=== PATIENT | male | born 1970 | race Caucasian/White ===

== ENCOUNTER 2018-02-22 16:14 | Inpatient (IN) | payer MEDICARE, OTHER ==
[2018-02-22 16:45] LABS: ADD MAN DIFF? NO
[2018-02-22 16:49] LABS: BASOPHIL # 0.1 10^3/ul (0.0-0.1); BASOPHILS % 0.8 % (0.0-2.0); EOSINOPHILS # 0.1 10^3/ul (0.0-0.5); EOSINOPHILS % 0.9 % (0.0-7.0); HEMATOCRIT 21.4 % (42.0-52.0); HEMOGLOBIN 7.3 g/dl (14.0-18.0); LYMPHOCYTES # 1.6 10^3/ul (0.8-2.9); LYMPHOCYTES % 23.8 % (15.0-51.0); MEAN CORPUSCULAR HEMOGLOBIN 32.2 pg (29.0-33.0); MEAN CORPUSCULAR HGB CONC 34.1 g/dl (32.0-37.0); MEAN CORPUSCULAR VOLUME 94.3 fl (82.0-101.0); MEAN PLATELET VOLUME 10.7 fl (7.4-10.4); MONOCYTE # 0.6 10^3/ul (0.3-0.9); MONOCYTES % 9.7 % (0.0-11.0); NEUTROPHIL # 4.2 10^3/ul (1.6-7.5); NEUTROPHILS % 63.7 % (39.0-77.0); PLATELET COUNT 331 10^3/UL (140-415); RED BLOOD COUNT 2.27 10^6/ul (4.70-6.10); RED CELL DISTRIBUTION WIDTH 14.3 % (11.5-14.5)
[2018-02-22 16:49] LABS: WHITE BLOOD COUNT 6.6 10^3/ul (4.8-10.8)
[2018-02-22 17:06] LABS: ALANINE AMINOTRANSFERASE 209 IU/L (13-69); ALBUMIN 3.8 g/dl (3.3-4.9); ALBUMIN/GLOBULIN RATIO 1.31; ALKALINE PHOSPHATASE 230 IU/L (42-121); ANION GAP 19 (8-16); ASPARTATE AMINO TRANSFERASE 118 IU/L (15-46); BILIRUBIN,INDIRECT 0.1 mg/dl (0-1.1); BILIRUBIN,TOTAL 0.1 mg/dl (0.2-1.3); BLOOD UREA NITROGEN 56 mg/dl (7-20); CALCIUM 8.6 mg/dl (8.4-10.2); CARBON DIOXIDE 15 mmol/L (21-31); CHLORIDE 97 mmol/L (97-110); CREATININE 7.59 mg/dl (0.61-1.24); SODIUM 125 mmol/L (135-144); TOTAL PROTEIN 6.7 g/dl (6.1-8.1)
[2018-02-22 17:15] LABS: GLUCOSE 408 mg/dl (70-220); POTASSIUM 5.8 mmol/L (3.5-5.1)
[2018-02-22] MEDS: SODIUM CHLORIDE 23.4% 77 MEQ in DEXTROSE 10% 1,000 ML IV (17:31)
[2018-02-22] MEDS ORDERED: DEXTROSE 50% 50 ML SYRINGE IV (18:00)
[2018-02-22] MEDS ORDERED: POTASSIUM CHLORIDE 30 MEQ in SOD CHLORIDE 0.9% 1,000 ML IV (18:43)
[2018-02-22] MEDS ORDERED: SODIUM CHLORIDE 23.4% 77 MEQ, POTASSIUM CHLORIDE 40 MEQ in DEXTROSE 10% 1,000 ML IV (18:43)
[2018-02-22] MEDS ORDERED: POTASSIUM CHLORIDE 40 MEQ in SOD CHLORIDE 0.9% 1,000 ML IV (18:43)
[2018-02-22] MEDS ORDERED: SODIUM CHLORIDE 23.4% 77 MEQ, POTASSIUM CHLORIDE 30 MEQ in DEXTROSE 10% 1,000 ML IV (18:43)
[2018-02-22 19:18] LABS: MODE ROOM AIR; MetHgb Venous 0.3 %; Sample Type Blood venous; Site VENOUS LINE; Venous COHb 0.2 %; Venous Fraction OxyHgb 78.8 %; Venous Oxygen Sat 79.2 mmHG (55.0-75.0); Venous Total Hemglobin 8.1 g/dl
[2018-02-22] MEDS: SOD CHLORIDE 0.9% 580 ML IV (19:45)
[2018-02-22] MEDS: SOD CHLORIDE 0.9% 1,000 ML IV (19:45)
[2018-02-22] MEDS: INSULIN REGULAR, HUMAN 100 UNIT in SOD CHLORIDE 0.9% 100 ML IV (19:47)
[2018-02-22 20:12] LABS: ANION GAP 11 (8-16); BLOOD UREA NITROGEN 40 mg/dl (7-20); CARBON DIOXIDE 12 mmol/L (21-31); CHLORIDE 113 mmol/L (97-110); GLUCOSE 352 mg/dl (70-220); MAGNESIUM 1.7 mg/dl (1.7-2.5); POTASSIUM 4.2 mmol/L (3.5-5.1); SODIUM 132 mmol/L (135-144)
[2018-02-22] MEDS ORDERED: ALBUTEROL/IPRATROPIUM (NEB) 3 ML AMP NEB (20:30)
[2018-02-22] MEDS ORDERED: ONDANSETRON 4 MG INJ IV (20:30)
[2018-02-22 22:09] LABS: MODE ROOM AIR; MetHgb Venous 0.5 %; Sample Type Blood venous; Site VENOUS LINE; Venous COHb 0.4 %; Venous Oxygen Sat 91.8 mmHG (55.0-75.0); Venous Total Hemglobin 5.7 g/dl
[2018-02-22 22:18] LABS: ANION GAP 17 (8-16); BLOOD UREA NITROGEN 56 mg/dl (7-20); CALCIUM 8.5 mg/dl (8.4-10.2); CARBON DIOXIDE 17 mmol/L (21-31); CHLORIDE 98 mmol/L (97-110); CREATININE 7.88 mg/dl (0.61-1.24); GLUCOSE 399 mg/dl (70-220); MAGNESIUM 2.3 mg/dl (1.7-2.5); PHOSPHORUS 5.6 mg/dl (2.5-4.9); POTASSIUM 5.3 mmol/L (3.5-5.1); SODIUM 127 mmol/L (135-144)
[2018-02-23] MEDS: HEPARIN 5,000 UNIT/0.5 ML VIAL SC ×3 (01:37→21:16)
[2018-02-23] MEDS: hydrALAzine 20 MG INJ IV ×3 (02:08→19:29)
[2018-02-23 02:31] LABS: ANION GAP 14 (8-16); BLOOD UREA NITROGEN 56 mg/dl (7-20); CALCIUM 8.2 mg/dl (8.4-10.2); CARBON DIOXIDE 18 mmol/L (21-31); CHLORIDE 100 mmol/L (97-110); CREATININE 7.52 mg/dl (0.61-1.24); GLUCOSE 302 mg/dl (70-220); MAGNESIUM 2.4 mg/dl (1.7-2.5); PHOSPHORUS 5.2 mg/dl (2.5-4.9); POTASSIUM 4.4 mmol/L (3.5-5.1); SODIUM 128 mmol/L (135-144)
[2018-02-23 03:24] LABS: MODE ROOM AIR; MetHgb Venous 0.4 %; Sample Type Blood venous; Site VENOUS LINE; Venous COHb 0.1 %; Venous Fraction OxyHgb 92.1 %; Venous Oxygen Sat 92.6 mmHG (55.0-75.0); Venous Total Hemglobin 6.7 g/dl
[2018-02-23] MEDS: SOD CHLORIDE 0.9% 1,000 ML IV ×3 (03:32→21:14)
[2018-02-23] MEDS: DEXTROSE 50% 50 ML SYRINGE IV (05:06)
[2018-02-23 05:43] LABS: ADD MAN DIFF? NO
[2018-02-23 05:59] LABS: BASOPHIL # 0.1 10^3/ul (0.0-0.1); BASOPHILS % 1.3 % (0.0-2.0); EOSINOPHILS # 0.2 10^3/ul (0.0-0.5); EOSINOPHILS % 2.6 % (0.0-7.0); HEMATOCRIT 21.3 % (42.0-52.0); HEMOGLOBIN 7.3 g/dl (14.0-18.0); LYMPHOCYTES # 1.5 10^3/ul (0.8-2.9); LYMPHOCYTES % 23.9 % (15.0-51.0); MEAN CORPUSCULAR HEMOGLOBIN 31.5 pg (29.0-33.0); MEAN CORPUSCULAR HGB CONC 34.3 g/dl (32.0-37.0); MEAN CORPUSCULAR VOLUME 91.8 fl (82.0-101.0); MEAN PLATELET VOLUME 10.6 fl (7.4-10.4); MONOCYTE # 0.6 10^3/ul (0.3-0.9); MONOCYTES % 9.8 % (0.0-11.0); NEUTROPHIL # 3.8 10^3/ul (1.6-7.5); NEUTROPHILS % 61.9 % (39.0-77.0); PLATELET COUNT 370 10^3/UL (140-415); RED BLOOD COUNT 2.32 10^6/ul (4.70-6.10); RED CELL DISTRIBUTION WIDTH 14.3 % (11.5-14.5)
[2018-02-23 05:59] LABS: WHITE BLOOD COUNT 6.1 10^3/ul (4.8-10.8)
[2018-02-23 06:32] LABS: ALANINE AMINOTRANSFERASE 170 IU/L (13-69); ALBUMIN 3.4 g/dl (3.3-4.9); ALBUMIN/GLOBULIN RATIO 1.13; ALKALINE PHOSPHATASE 210 IU/L (42-121); ANION GAP 17 (8-16); ASPARTATE AMINO TRANSFERASE 73 IU/L (15-46); BILIRUBIN,INDIRECT 0.2 mg/dl (0-1.1); BILIRUBIN,TOTAL 0.2 mg/dl (0.2-1.3); BLOOD UREA NITROGEN 58 mg/dl (7-20); CALCIUM 8.5 mg/dl (8.4-10.2); CARBON DIOXIDE 17 mmol/L (21-31); CHLORIDE 101 mmol/L (97-110); CREATININE 8.16 mg/dl (0.61-1.24); GLUCOSE 128 mg/dl (70-220); POTASSIUM 4.9 mmol/L (3.5-5.1); SODIUM 130 mmol/L (135-144); TOTAL PROTEIN 6.4 g/dl (6.1-8.1)
[2018-02-23 06:37] LABS: PHOSPHORUS 5.7 mg/dl (2.5-4.9)
[2018-02-23 06:37] LABS: MAGNESIUM 2.4 mg/dl (1.7-2.5)
[2018-02-23] MEDS: INSULIN GLARGINE [LANTus] (100 UNITS/ML) SYG SC ×2 (08:08→16:43)
[2018-02-23] MEDS: INSULIN HUMAN REGULAR 100 UNIT in SOD CHLORIDE 0.9% 99 ML IV (09:09)
[2018-02-23 09:24] LABS: MODE NASAL CANNULA; MetHgb Venous 0.1 %; Sample Type Blood venous; Site VENOUS LINE; Venous COHb 0.3 %; Venous Oxygen Sat 96.4 mmHG (55.0-75.0)
[2018-02-23] MEDS: LABETALOL HCL 20MG INJ IV (10:16)
[2018-02-23 11:02] LABS: HEPATITIS B SURFACE ANTIGEN NEGATIVE (NEGATIVE)
[2018-02-23] MEDS: HEPARIN 1000 UNITS/ML 10 ML INJ CATHETER (12:01)
[2018-02-23 13:32] LABS: MODE NASAL CANNULA; MetHgb Venous 0 %; Sample Type Blood venous; Site VENOUS LINE; Venous COHb 0.3 %; Venous Fraction OxyHgb 88.7 %; Venous Total Hemglobin 9.6 g/dl
[2018-02-23 15:09] LABS: HEPATITIS B SURFACE ANTIBODY POSITIVE (NEGATIVE)
[2018-02-23 15:29] LABS: ANION GAP 15 (8-16); BLOOD UREA NITROGEN 22 mg/dl (7-20); CALCIUM 8.6 mg/dl (8.4-10.2); CARBON DIOXIDE 23 mmol/L (21-31); CHLORIDE 99 mmol/L (97-110); CREATININE 4.18 mg/dl (0.61-1.24); GLUCOSE 304 mg/dl (70-220); POTASSIUM 4.2 mmol/L (3.5-5.1); SODIUM 133 mmol/L (135-144)
[2018-02-23] MEDS ORDERED: DEXTROSE 50% 50 ML SYRINGE IV (16:30)
[2018-02-23] MEDS ORDERED: GLUCOSE GEL 15 GRAM TUBE PO ×2 (16:30)
[2018-02-23] MEDS ORDERED: GLUCAGON 1 MG INJ IM (16:30)
[2018-02-23] MEDS ORDERED: GLUCOSE GEL 15 GRAM TUBE BUCCAL (16:30)
[2018-02-23] MEDS: SODIUM CHLORIDE 23.4% 77 MEQ in DEXTROSE 10% 1,000 ML IV (17:31)
[2018-02-23] MEDS ORDERED: INSULIN ASPART [NOVOLOG] 3 ML PEN SC ×2 (18:00)
[2018-02-23] MEDS ORDERED: hydrALAzine 20 MG INJ IV (18:00)
[2018-02-23 18:17] LABS: ANION GAP 13 (8-16); BLOOD UREA NITROGEN 25 mg/dl (7-20); CALCIUM 8.5 mg/dl (8.4-10.2); CARBON DIOXIDE 24 mmol/L (21-31); CHLORIDE 100 mmol/L (97-110); CREATININE 4.29 mg/dl (0.61-1.24); GLUCOSE 171 mg/dl (70-220); MAGNESIUM 2.1 mg/dl (1.7-2.5); PHOSPHORUS 4.5 mg/dl (2.5-4.9); POTASSIUM 4.2 mmol/L (3.5-5.1); SODIUM 133 mmol/L (135-144)
[2018-02-23] MEDS: NIFEdipine (XL) 60 MG TAB PO (18:55)
[2018-02-23] MEDS: FLUOXETINE 20 MG CAP PO (18:55)
[2018-02-23] MEDS: INSULIN ASPART [NOVOLOG] 3 ML PEN SC ×4 (19:00→21:43)
[2018-02-23] MEDS: SOD FERRIC GLUC COMPLX 125 MG in SOD CHLORIDE 0.9% 100 ML IVPB (19:24)
[2018-02-23] MEDS: FOLIC ACID 1 MG TAB PO (20:24)
[2018-02-23] MEDS: EPOETIN 4000 UNITS/1 ML INJ (ESRD) SC (20:25)
[2018-02-23] MEDS: traZODone 50 MG TAB PO (21:00)
[2018-02-23] MEDS: ATORVASTATIN 20 MG TAB PO (21:14)
[2018-02-23 21:58] LABS: ANION GAP 14 (8-16); BLOOD UREA NITROGEN 25 mg/dl (7-20); CALCIUM 8.4 mg/dl (8.4-10.2); CARBON DIOXIDE 25 mmol/L (21-31); CHLORIDE 101 mmol/L (97-110); CREATININE 4.78 mg/dl (0.61-1.24); GLUCOSE 118 mg/dl (70-220); MAGNESIUM 2.2 mg/dl (1.7-2.5); PHOSPHORUS 4.7 mg/dl (2.5-4.9); POTASSIUM 4.4 mmol/L (3.5-5.1); SODIUM 136 mmol/L (135-144)
[2018-02-24] MEDS: INSULIN ASPART [NOVOLOG] 3 ML PEN SC ×9 (08:00→20:15)
[2018-02-24 08:41] LABS: IRON 80 ug/dl (35-150)
[2018-02-24 08:51] LABS: % IRON SATURATION 30 % SAT (22-52); TOTAL IRON BINDING CAPACITY 265 ug/dl (241-421)
[2018-02-24] MEDS: NIFEdipine (XL) 60 MG TAB PO ×2 (08:52→19:18)
[2018-02-24] MEDS: FOLIC ACID 1 MG TAB PO (09:02)
[2018-02-24] MEDS: FLUOXETINE 20 MG CAP PO (09:03)
[2018-02-24] MEDS: INSULIN GLARGINE [LANTus] (100 UNITS/ML) SYG SC (09:04)
[2018-02-24] MEDS: HEPARIN 5,000 UNIT/0.5 ML VIAL SC ×2 (09:05→20:33)
[2018-02-24] MEDS: COLLAGENASE 5 GM (UD JAR) TOP (12:08)
[2018-02-24] MEDS: SOD FERRIC GLUC COMPLX 125 MG in SOD CHLORIDE 0.9% 100 ML IVPB (17:27)
[2018-02-24] MEDS: SODIUM CHLORIDE 23.4% 77 MEQ in DEXTROSE 10% 1,000 ML IV (18:33)
[2018-02-24] MEDS: ATORVASTATIN 20 MG TAB PO (20:17)
[2018-02-24] MEDS: traZODone 50 MG TAB PO (20:19)
[2018-02-24] MEDS: hydrALAzine 20 MG INJ IV (23:45)
[2018-02-25 05:42] LABS: ADD MAN DIFF? NO
[2018-02-25 05:57] LABS: WHITE BLOOD COUNT 5.3 10^3/ul (4.8-10.8)
[2018-02-25 05:57] LABS: ABNORMAL IP MESSAGE 1; BASOPHIL # 0.1 10^3/ul (0.0-0.1); BASOPHILS % 0.9 % (0.0-2.0); EOSINOPHILS # 0.1 10^3/ul (0.0-0.5); EOSINOPHILS % 2.1 % (0.0-7.0); HEMATOCRIT 20.9 % (42.0-52.0); LYMPHOCYTES # 1.8 10^3/ul (0.8-2.9); LYMPHOCYTES % 33.4 % (15.0-51.0); MEAN CORPUSCULAR HEMOGLOBIN 32.2 pg (29.0-33.0); MEAN CORPUSCULAR HGB CONC 32.1 g/dl (32.0-37.0); MEAN CORPUSCULAR VOLUME 100.5 fl (82.0-101.0); MEAN PLATELET VOLUME 10.6 fl (7.4-10.4); MONOCYTE # 0.9 10^3/ul (0.3-0.9); MONOCYTES % 17.6 % (0.0-11.0); NEUTROPHIL # 2.4 10^3/ul (1.6-7.5); NEUTROPHILS % 45.1 % (39.0-77.0); NUCLEATED RED BLOOD CELLS% 0.6 /100WBC (0.0-0.0); PLATELET COUNT 335 10^3/UL (140-415); POSITIVE DIFF @See below; RED BLOOD COUNT 2.08 10^6/ul (4.70-6.10); RED CELL DISTRIBUTION WIDTH 16.8 % (11.5-14.5)
[2018-02-25 06:11] LABS: HEMOGLOBIN 6.7 g/dl (14.0-18.0)
[2018-02-25 06:35] LABS: ALANINE AMINOTRANSFERASE 120 IU/L (13-69); ALBUMIN 3.4 g/dl (3.3-4.9); ALBUMIN/GLOBULIN RATIO 1.21; ALKALINE PHOSPHATASE 182 IU/L (42-121); ANION GAP 16 (8-16); ASPARTATE AMINO TRANSFERASE 55 IU/L (15-46); BILIRUBIN,INDIRECT 0.1 mg/dl (0-1.1); BILIRUBIN,TOTAL 0.1 mg/dl (0.2-1.3); BLOOD UREA NITROGEN 32 mg/dl (7-20); CALCIUM 8.3 mg/dl (8.4-10.2); CARBON DIOXIDE 19 mmol/L (21-31); CHLORIDE 106 mmol/L (97-110); GLUCOSE 263 mg/dl (70-220); SODIUM 134 mmol/L (135-144); TOTAL PROTEIN 6.2 g/dl (6.1-8.1)
[2018-02-25 06:44] LABS: POTASSIUM 6.5 mmol/L (3.5-5.1)
[2018-02-25] MEDS: COLLAGENASE 5 GM (UD JAR) TOP (09:00)
[2018-02-25] MEDS: INSULIN ASPART [NOVOLOG] 3 ML PEN SC ×8 (10:12→21:00)
[2018-02-25 10:47] LABS: HAAIG REFLEX REFLEX FILED
[2018-02-25 10:50] LABS: RETICULOCYTE RBC 2.07
[2018-02-25 10:50] LABS: RETICULOCYTE COUNT # 0.105 X10^6 (0.020-0.110); RETICULOCYTE COUNT % 5.1 % (0.5-1.5)
[2018-02-25 12:05] LABS: IMMEDIATE SPIN CROSSMATCH 1 4
[2018-02-25] MEDS: INSULIN GLARGINE [LANTus] (100 UNITS/ML) SYG SC (12:15)
[2018-02-25 12:34] LABS: HEPATITIS B SURFACE ANTIGEN NEGATIVE (NEGATIVE)
[2018-02-25 12:52] LABS: HEPATITIS B CORE ANTIBODY NEGATIVE (NEGATIVE); HEPATITIS C VIRAL ANTIBODY NEGATIVE (NEGATIVE)
[2018-02-25] MEDS: HEPARIN 1000 UNITS/ML 10 ML INJ CATHETER (13:18)
[2018-02-25 13:52] LABS: FOLATE 8.9 ng/ml (2.8-20.0)
[2018-02-25] MEDS: FOLIC ACID 1 MG TAB PO (14:08)
[2018-02-25] MEDS: FLUOXETINE 20 MG CAP PO (14:09)
[2018-02-25] MEDS: NIFEdipine (XL) 60 MG TAB PO (14:09)
[2018-02-25] MEDS: HEPARIN 5,000 UNIT/0.5 ML VIAL SC ×2 (14:20→21:58)
[2018-02-25] MEDS: hydrALAzine 20 MG INJ IV (15:50)
[2018-02-25] MEDS: SOD FERRIC GLUC COMPLX 125 MG in SOD CHLORIDE 0.9% 100 ML IVPB (17:34)
[2018-02-25] MEDS: EPOETIN 4000 UNITS/1 ML INJ (ESRD) SC (17:38)
[2018-02-25 19:41] LABS: OCCULT BLOOD STOOL POSITIVE (NEGATIVE)
[2018-02-25] MEDS: ATORVASTATIN 20 MG TAB PO (21:50)
[2018-02-25] MEDS: traZODone 50 MG TAB PO (21:51)
[2018-02-26] MEDS: INSULIN ASPART [NOVOLOG] 3 ML PEN SC ×7 (07:51→20:36)
[2018-02-26] MEDS: FOLIC ACID 1 MG TAB PO (08:21)
[2018-02-26] MEDS: FLUOXETINE 20 MG CAP PO (08:21)
[2018-02-26] MEDS: NIFEdipine (XL) 60 MG TAB PO (08:21)
[2018-02-26] MEDS: INSULIN GLARGINE [LANTus] (100 UNITS/ML) SYG SC (08:34)
[2018-02-26] MEDS: HEPARIN 5,000 UNIT/0.5 ML VIAL SC ×2 (08:34→20:37)
[2018-02-26 11:33] LABS: ADD MAN DIFF? NO
[2018-02-26 11:35] LABS: BASOPHIL # 0.1 10^3/ul (0.0-0.1); BASOPHILS % 1.2 % (0.0-2.0); EOSINOPHILS # 0.1 10^3/ul (0.0-0.5); HEMATOCRIT 29.5 % (42.0-52.0); HEMOGLOBIN 9.7 g/dl (14.0-18.0); LYMPHOCYTES # 1.7 10^3/ul (0.8-2.9); LYMPHOCYTES % 27.9 % (15.0-51.0); MEAN CORPUSCULAR HEMOGLOBIN 31.7 pg (29.0-33.0); MEAN CORPUSCULAR HGB CONC 32.9 g/dl (32.0-37.0); MEAN CORPUSCULAR VOLUME 96.4 fl (82.0-101.0); MEAN PLATELET VOLUME 10.1 fl (7.4-10.4); MONOCYTE # 0.8 10^3/ul (0.3-0.9); MONOCYTES % 12.5 % (0.0-11.0); NEUTROPHIL # 3.3 10^3/ul (1.6-7.5); NEUTROPHILS % 55.2 % (39.0-77.0); NUCLEATED RED BLOOD CELLS% 0.7 /100WBC (0.0-0.0); PLATELET COUNT 341 10^3/UL (140-415); RED BLOOD COUNT 3.06 10^6/ul (4.70-6.10); RED CELL DISTRIBUTION WIDTH 16.3 % (11.5-14.5)
[2018-02-26 11:54] LABS: ALANINE AMINOTRANSFERASE 127 IU/L (13-69); ALKALINE PHOSPHATASE 195 IU/L (42-121); ANION GAP 15 (8-16); ASPARTATE AMINO TRANSFERASE 102 IU/L (15-46); BILIRUBIN,TOTAL 0.1 mg/dl (0.2-1.3); BLOOD UREA NITROGEN 31 mg/dl (7-20); CALCIUM 8.5 mg/dl (8.4-10.2); CARBON DIOXIDE 22 mmol/L (21-31); CHLORIDE 102 mmol/L (97-110); CREATININE 6.11 mg/dl (0.61-1.24); GLUCOSE 145 mg/dl (70-220); SODIUM 134 mmol/L (135-144)
[2018-02-26 12:04] LABS: ALBUMIN 3.6 g/dl (3.3-4.9); BILIRUBIN,INDIRECT 0.1 mg/dl (0-1.1); TOTAL PROTEIN 6.6 g/dl (6.1-8.1)
[2018-02-26 12:05] LABS: POTASSIUM 5.2 mmol/L (3.5-5.1)
[2018-02-26] MEDS: NA POLYST SULFON 15 GM/60 ML BTL PO (12:36)
[2018-02-26] MEDS: SOD FERRIC GLUC COMPLX 125 MG in SOD CHLORIDE 0.9% 100 ML IVPB (16:29)
[2018-02-26 19:15] LABS: HEMOGLOBIN 10.8 g/dl (14.0-18.0)
[2018-02-26 19:31] LABS: CREATINE KINASE 41 IU/L (23-200)
[2018-02-26 19:44] LABS: CK INDEX 1.8; CK-MB 0.74 ng/ml (0.0-2.4); TROPONIN-I 0.035 ng/ml (0.000-0.120)
[2018-02-26] MEDS: traZODone 50 MG TAB PO (20:27)
[2018-02-26] MEDS: ATORVASTATIN 20 MG TAB PO (20:27)
[2018-02-26] MEDS: NIFEdipine (XL) 30 MG TAB PO (20:27)
[2018-02-26] MEDS: hydrALAzine 20 MG INJ IV (20:48)
[2018-02-27] MEDS: ACETAMINOPHEN 650MG/20.3ML CUP PO (00:06)
[2018-02-27] MEDS: hydrALAzine 20 MG INJ IV ×2 (00:09→11:12)
[2018-02-27 01:05] LABS: CREATINE KINASE 35 IU/L (23-200)
[2018-02-27 01:18] LABS: CK INDEX 1.7; CK-MB 0.61 ng/ml (0.0-2.4); TROPONIN-I 0.045 ng/ml (0.000-0.120)
[2018-02-27 06:28] LABS: ADD MAN DIFF? NO
[2018-02-27 06:35] LABS: BASOPHIL # 0.1 10^3/ul (0.0-0.1); BASOPHILS % 0.9 % (0.0-2.0); EOSINOPHILS # 0.1 10^3/ul (0.0-0.5); HEMATOCRIT 28.5 % (42.0-52.0); HEMOGLOBIN 9.2 g/dl (14.0-18.0); LYMPHOCYTES # 1.9 10^3/ul (0.8-2.9); LYMPHOCYTES % 27.1 % (15.0-51.0); MEAN CORPUSCULAR HEMOGLOBIN 31.7 pg (29.0-33.0); MEAN CORPUSCULAR HGB CONC 32.3 g/dl (32.0-37.0); MEAN CORPUSCULAR VOLUME 98.3 fl (82.0-101.0); MEAN PLATELET VOLUME 10.3 fl (7.4-10.4); MONOCYTES % 13.9 % (0.0-11.0); NEUTROPHIL # 3.8 10^3/ul (1.6-7.5); NEUTROPHILS % 54.7 % (39.0-77.0); NUCLEATED RED BLOOD CELLS # 0.1 10^3/ul (0.0-0.0); NUCLEATED RED BLOOD CELLS% 0.9 /100WBC (0.0-0.0); PLATELET COUNT 337 10^3/UL (140-415)
[2018-02-27 06:35] LABS: WHITE BLOOD COUNT 6.9 10^3/ul (4.8-10.8)
[2018-02-27 07:54] LABS: ANION GAP 17 (8-16); BLOOD UREA NITROGEN 46 mg/dl (7-20); CALCIUM 8.5 mg/dl (8.4-10.2); CARBON DIOXIDE 20 mmol/L (21-31); CHLORIDE 103 mmol/L (97-110); CREATININE 8.33 mg/dl (0.61-1.24); GLUCOSE 176 mg/dl (70-220); POTASSIUM 5.8 mmol/L (3.5-5.1); SODIUM 134 mmol/L (135-144)
[2018-02-27] MEDS: INSULIN GLARGINE [LANTus] (100 UNITS/ML) SYG SC (08:07)
[2018-02-27] MEDS: INSULIN ASPART [NOVOLOG] 3 ML PEN SC ×8 (08:07→21:00)
[2018-02-27] MEDS: ASPIRIN (EC) 81 MG TAB PO (08:08)
[2018-02-27] MEDS: FOLIC ACID 1 MG TAB PO (08:08)
[2018-02-27] MEDS: FLUOXETINE 20 MG CAP PO (08:08)
[2018-02-27] MEDS: HEPARIN 5,000 UNIT/0.5 ML VIAL SC ×2 (08:09→21:00)
[2018-02-27 08:29] LABS: CHOLESTEROL 223 mg/dl (100-200)
[2018-02-27 08:29] LABS: TRIGLYCERIDES 148 mg/dl (0-149)
[2018-02-27 08:46] LABS: CHOL/HDL RATIO 1.4 RATIO; LDL CHOLESTEROL,CALCULATED 42 mg/dl
[2018-02-27 09:16] LABS: HDL CHOLESTEROL 149 mg/dl (28-71)
[2018-02-27] MEDS: HEPARIN 1000 UNITS/ML 10 ML INJ CATHETER (13:02)
[2018-02-27] MEDS: NIFEdipine (XL) 60 MG TAB PO (13:33)
[2018-02-27] MEDS: SOD FERRIC GLUC COMPLX 125 MG in SOD CHLORIDE 0.9% 100 ML IVPB (17:27)
[2018-02-27] MEDS: EPOETIN 4000 UNITS/1 ML INJ (ESRD) SC (17:31)
[2018-02-27] MEDS: traZODone 50 MG TAB PO (21:00)
[2018-02-27] MEDS: ATORVASTATIN 20 MG TAB PO (21:00)
[2018-02-27] MEDS: NIFEdipine (XL) 30 MG TAB PO (21:00)
[2018-02-28] MEDS ORDERED: LORAZEPAM 2 MG INJ IV (02:00)
[2018-02-28 07:35] LABS: HEMOGLOBIN A1C 8.8 % (0-5.9)
[2018-02-28] MEDS: INSULIN ASPART [NOVOLOG] 3 ML PEN SC ×7 (07:46→20:38)
[2018-02-28] MEDS: FOLIC ACID 1 MG TAB PO (08:24)
[2018-02-28] MEDS: FLUOXETINE 20 MG CAP PO (08:24)
[2018-02-28] MEDS: ASPIRIN (EC) 81 MG TAB PO (08:24)
[2018-02-28] MEDS: NIFEdipine (XL) 60 MG TAB PO ×2 (08:27→20:25)
[2018-02-28] MEDS: HEPARIN 5,000 UNIT/0.5 ML VIAL SC ×2 (08:28→20:28)
[2018-02-28] MEDS: INSULIN GLARGINE [LANTus] (100 UNITS/ML) SYG SC ×2 (08:39→20:27)
[2018-02-28] MEDS: BISACODYL (EC) 5 MG TAB PO ×2 (11:54→20:24)
[2018-02-28] MEDS: PEG/ELECTROLYTES 4L BTL PO ×2 (11:55→17:18)
[2018-02-28] MEDS: hydrALAzine 20 MG INJ IV (12:19)
[2018-02-28] MEDS: traZODone 50 MG TAB PO (20:25)
[2018-02-28] MEDS: ATORVASTATIN 20 MG TAB PO (20:25)
[2018-03-01] MEDS: ACCU-CHEK XX (02:00)
[2018-03-01] MEDS: INSULIN ASPART [NOVOLOG] 3 ML PEN SC ×7 (08:00→20:35)
[2018-03-01] MEDS: DEXTROSE 50% 50 ML SYRINGE IV (08:25)
[2018-03-01] MEDS: HEPARIN 5,000 UNIT/0.5 ML VIAL SC ×2 (09:00→20:34)
[2018-03-01] MEDS: hydrALAzine 20 MG INJ (16:07)
[2018-03-01] MEDS: PROPOFOL 20 ML ×2 (16:07→16:17)
[2018-03-01] MEDS ORDERED: hydrALAzine 20 MG INJ IV (17:00)
[2018-03-01] MEDS ORDERED: EPHEDrine SULFATE 50 MG/5 ML SYG IV (17:00)
[2018-03-01] MEDS ORDERED: MIDAZOLAM 1 MG/ML 2 ML INJ IV (17:00)
[2018-03-01] MEDS ORDERED: METOCLOPRAMIDE 10 MG INJ IV (17:00)
[2018-03-01] MEDS ORDERED: DIPHENHYDRAMINE 50 MG INJ IV (17:00)
[2018-03-01] MEDS ORDERED: FENTAnyl 50 MCG/ML VIAL IV ×3 (17:00)
[2018-03-01] MEDS ORDERED: MEPERIDINE 25 MG INJ IV (17:00)
[2018-03-01] MEDS ORDERED: LABETALOL HCL 20MG INJ IV (17:00)
[2018-03-01] MEDS ORDERED: ONDANSETRON 4 MG INJ IV (17:00)
[2018-03-01] MEDS: LABETALOL HCL 20MG INJ (17:16)
[2018-03-01] MEDS: FOLIC ACID 1 MG TAB PO (18:30)
[2018-03-01] MEDS: ASPIRIN (EC) 81 MG TAB PO (18:30)
[2018-03-01] MEDS: NIFEdipine (XL) 60 MG TAB PO ×2 (18:30→20:32)
[2018-03-01] MEDS: FLUOXETINE 20 MG CAP PO (18:31)
[2018-03-01] MEDS: ATORVASTATIN 20 MG TAB PO (20:32)
[2018-03-01] MEDS: traZODone 50 MG TAB PO (20:32)
[2018-03-01] MEDS: INSULIN GLARGINE [LANTus] (100 UNITS/ML) SYG SC (20:34)
[2018-03-02] MEDS: ACCU-CHEK XX (02:00)
[2018-03-02] MEDS: NIFEdipine (XL) 60 MG TAB PO ×2 (09:00→21:12)
[2018-03-02] MEDS: FLUOXETINE 20 MG CAP PO (09:23)
[2018-03-02] MEDS: ASPIRIN (EC) 81 MG TAB PO (09:23)
[2018-03-02] MEDS: FOLIC ACID 1 MG TAB PO (09:23)
[2018-03-02] MEDS: INSULIN ASPART [NOVOLOG] 3 ML PEN SC ×8 (09:28→21:42)
[2018-03-02] MEDS: HEPARIN 5,000 UNIT/0.5 ML VIAL SC ×2 (09:29→21:00)
[2018-03-02] MEDS: HEPARIN 1000 UNITS/ML 10 ML INJ CATHETER (13:47)
[2018-03-02 14:23] LABS: ADD MAN DIFF? NO
[2018-03-02 14:25] LABS: WHITE BLOOD COUNT 4.6 10^3/ul (4.8-10.8)
[2018-03-02 14:25] LABS: BASOPHIL # 0.1 10^3/ul (0.0-0.1); BASOPHILS % 1.1 % (0.0-2.0); EOSINOPHILS # 0.1 10^3/ul (0.0-0.5); EOSINOPHILS % 1.1 % (0.0-7.0); HEMATOCRIT 30.4 % (42.0-52.0); HEMOGLOBIN 10.3 g/dl (14.0-18.0); LYMPHOCYTES # 1.3 10^3/ul (0.8-2.9); LYMPHOCYTES % 28.5 % (15.0-51.0); MEAN CORPUSCULAR HEMOGLOBIN 32.8 pg (29.0-33.0); MEAN CORPUSCULAR HGB CONC 33.9 g/dl (32.0-37.0); MEAN CORPUSCULAR VOLUME 96.8 fl (82.0-101.0); MEAN PLATELET VOLUME 10.3 fl (7.4-10.4); MONOCYTE # 0.6 10^3/ul (0.3-0.9); MONOCYTES % 12.7 % (0.0-11.0); NEUTROPHIL # 2.5 10^3/ul (1.6-7.5); NEUTROPHILS % 55.5 % (39.0-77.0); PLATELET COUNT 323 10^3/UL (140-415); RED BLOOD COUNT 3.14 10^6/ul (4.70-6.10); RED CELL DISTRIBUTION WIDTH 17.7 % (11.5-14.5)
[2018-03-02 14:59] LABS: ANION GAP 16 (8-16); BLOOD UREA NITROGEN 29 mg/dl (7-20); CALCIUM 8.6 mg/dl (8.4-10.2); CARBON DIOXIDE 23 mmol/L (21-31); CHLORIDE 98 mmol/L (97-110); CREATININE 4.33 mg/dl (0.61-1.24); GLUCOSE 230 mg/dl (70-220); POTASSIUM 3.8 mmol/L (3.5-5.1); SODIUM 133 mmol/L (135-144)
[2018-03-02] MEDS: EPOETIN 4000 UNITS/1 ML INJ (ESRD) SC (17:57)
[2018-03-02] MEDS: INSULIN GLARGINE [LANTus] (100 UNITS/ML) SYG SC (20:00)
[2018-03-02] MEDS: ATORVASTATIN 20 MG TAB PO (21:11)
[2018-03-02] MEDS: traZODone 50 MG TAB PO (21:12)
[2018-03-03] MEDS ORDERED: ACCU-CHEK XX (02:00)
== END 2018-03-02 21:55 | disposition left against medical advice (07) | DRG 637 ==
LOC: E/R 16:14 → MS4 18:39 → 6WM 02-24 09:50
PROC: 0DBE8ZX Excision of Large Intestine, Via Natural or Artificial Opening Endoscopic, Diagnostic (ICD-10-PCS; principal; 2018-03-01 15:09)
PROC: 0DB68ZX Excision of Stomach, Via Natural or Artificial Opening Endoscopic, Diagnostic (ICD-10-PCS; 2018-03-01 15:09)
PROC: 5A1D70Z Performance of Urinary Filtration, Intermittent, Less than 6 Hours Per Day (ICD-10-PCS; 2018-03-01 15:09)
PROC: 30233N1 Transfusion of Nonautologous Red Blood Cells into Peripheral Vein, Percutaneous Approach (ICD-10-PCS; 2018-03-01 15:09)
DX: E10.10 Type 1 diabetes mellitus with ketoacidosis without coma (principal); N18.6 End stage renal disease; I12.0 Hypertensive chronic kidney disease with stage 5 chronic kidney disease or end stage renal disease; I16.1 Hypertensive emergency; E87.1 Hypo-osmolality and hyponatremia; J90 Pleural effusion, not elsewhere classified; E78.5 Hyperlipidemia, unspecified; K29.60 Other gastritis without bleeding; R19.7 Diarrhea, unspecified; E10.22 Type 1 diabetes mellitus with diabetic chronic kidney disease; E87.5 Hyperkalemia; D63.1 Anemia in chronic kidney disease; R42 Dizziness and giddiness; K57.90 Diverticulosis of intestine, part unspecified, without perforation or abscess without bleeding; E10.42 Type 1 diabetes mellitus with diabetic polyneuropathy; Z99.2 Dependence on renal dialysis
CPT/HCPCS: 36415; 36430; 71045; 76705; 80048; 80053; 80061; 82270; 82550; 82553; 82607; 82728; 82746; 82803; 82962; 83036; 83540; 83735; 84100; 84484; 85014; 85018; 85025; 85045; 86704; 86706; 86709; 86803; 86850; 86900; 86901; 86920; 87340; 88305; 88312; 90935; 93005; 93306; 95819; 99291-25; G0378